=== PATIENT | male | born 1960 | race Caucasian/White ===

== ENCOUNTER 2017-07-11 07:43 | Emergency (ER) | payer OTHER, MEDICAID ==
[2017-07-11] MEDS ORDERED: HYDROmorphONE 1 MG/ML SYG IV STA (07:51)
[2017-07-11] MEDS ORDERED: SOD CHLORIDE 0.9% 1,000 ML IV STA (07:51)
[2017-07-11] MEDS ORDERED: ONDANSETRON 4 MG INJ IV STA (07:51)
[2017-07-11 08:38] LABS: BASOPHIL # 0.1 10^3/ul (0.0-0.1); BASOPHILS % 0.9 % (0.0-2.0); EOSINOPHILS # 0.1 10^3/ul (0.0-0.5); EOSINOPHILS % 0.5 % (0.0-7.0); HEMATOCRIT 41.6 % (42.0-52.0); HEMOGLOBIN 14.3 g/dl (14.0-18.0); LYMPHOCYTES % 37.6 % (15.0-51.0); MEAN CORPUSCULAR HGB CONC 34.4 g/dl (32.0-37.0); MEAN CORPUSCULAR VOLUME 93.1 fl (82.0-101.0); MONOCYTE # 1.1 10^3/ul (0.3-0.9); MONOCYTES % 10.6 % (0.0-11.0); NEUTROPHILS % 50.1 % (39.0-77.0); PLATELET COUNT 186 10^3/UL (140-415); RED BLOOD COUNT 4.47 10^6/ul (4.70-6.10); RED CELL DISTRIBUTION WIDTH 16.3 % (11.5-14.5); WHITE BLOOD COUNT 10.6 10^3/ul (4.8-10.8)
[2017-07-11 08:48] LABS: INR 1.11; PROTIME 14.3 Sec (12.2-14.2); PT RATIO 1.1
[2017-07-11 08:49] LABS: PARTIAL THROMBOPLASTIN TIME 30.8 Sec (25.0-35.0)
[2017-07-11] MEDS ORDERED: SOD CHLORIDE 0.9% 100 ML ONE (09:00)
[2017-07-11] MEDS ORDERED: IODIXANOL LOCM 100 ML BTL ONE (09:00)
[2017-07-11 09:18] LABS: ALBUMIN 3.8 g/dl (3.3-4.9); BILIRUBIN,INDIRECT 1.1 mg/dl (0-1.1); BILIRUBIN,TOTAL 1.1 mg/dl (0.2-1.3); CALCIUM 8.9 mg/dl (8.4-10.2); CREATININE 0.52 mg/dl (0.61-1.24); POTASSIUM 3.6 mmol/L (3.5-5.1); TOTAL PROTEIN 7.6 g/dl (6.1-8.1)
--- NOTE | 2017-07-11 09:45 | RADRPT ---
PROCEDURE: CT Brain without contrast. CLINICAL INDICATION: Pain, headache TECHNIQUE: Routine CT scan of the brain was performed on a high resolution multi detector scanner without intravenous contrast. One or more of the following dose reduction techniques were used: Auto mated exposure control; Adjustment of the mA and/or kV according to patient size; Use of iterative r econstruction technique. CTDI = 43 mGy. DLP = 720 mGy-cm. COMPARISON: No prior relevant examinations are available for comparison. FINDINGS: Hemorrhage: No evidence of intracranial hemorrhage. Acute ischemic changes: No evidence of acute ischemic changes. Mass effect: None. Parenchymal volume: Within normal limits for age. Ventricular system: Concordant with parenchymal volume. Chronic changes: Mild chronic-appearing microvascular ischemic changes of the supratentorial white m atter. Atherosclerotic calcifications of the cavernous portions of both internal carotid arteries ar e present. Extracranial soft tissues: Unremarkable. Calvarium: Small ossific fragment identified in the left infratemporal fossa just anterior to the ar ticular eminence of the left temporomandibular joint. Small lucency observed involving the lateral o rbit at the level of the lateral suture line. Paranasal sinuses: Visualized paranasal sinuses are clear. Mastoid air cells: Visualized mastoid air cells are clear. IMPRESSION: No acute intracranial abnormalities. Mild chronic-appearing microvascular ischemic changes of the supratentorial white matter. Small ossific fragment identified in the left infratemporal fossa just anterior to the articular edgardo nence of the left temporomandibular joint. Small lucency observed involving the lateral orbit at the level of the lateral suture line. These may be chronic. If clinical concern for acute injury to the maxillofacial region additional CT scan can be obtained. RPTAT: AADD .Juventino Jacobs MD, Date Time Electronically viewed and signed by .Juventino Jacobs MD, MD on 07/11/2017 09:45 .B/
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
[2017-07-11] MEDS ORDERED: KETOROLAC 30 MG INJ IV STA (10:08)
[2017-07-11] MEDS ORDERED: IBUP-1542 PO (10:09)
[2017-07-11] MEDS ORDERED: HYDR-902 PO (10:09)
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
== END 2017-07-11 11:57 | disposition home or self-care (01) ==
LOC: E/R 07:43
DX: S22.41XA Multiple fractures of ribs, right side, initial encounter for closed fracture (principal); E11.9 Type 2 diabetes mellitus without complications; J44.9 Chronic obstructive pulmonary disease, unspecified; R51 Headache; Y04.8XXA Assault by other bodily force, initial encounter
CPT/HCPCS: 36415; 70450; 71260; 72125; 74177; 80053; 83690; 85025; 85610; 85730; 96374; 99291; J1170; J1885; J2405; J7030; Q9967